=== PATIENT | female | born 1980 | race Caucasian/White ===

== ENCOUNTER 2024-01-04 18:37 | Emergency (ER) | payer MEDICAID, OTHER ==
[~2024-01-04] VITALS: Ht 165.1 cm; Wt 94.8 kg
[~2024-01-04 18:37] MED LIST: MOTRIN
[2024-01-04 18:52] VITALS: BP 151/77; PULSE 109; RESP 16; TEMP 97.5; O2SAT 98
[2024-01-04] MEDS ORDERED: POLY10DR5 OP (19:17)
== END 2024-01-04 19:28 | disposition home or self-care (01) ==
LOC: MED 18:37
DX: H10.9 Unspecified conjunctivitis (principal); E78.5 Hyperlipidemia, unspecified; Z79.899 Other long term (current) drug therapy
CPT/HCPCS: 99283